=== PATIENT | female | born 1960 | race Asian ===

== ENCOUNTER → 2024-02-19 07:36 | Outpatient (CLI) | payer OTHER, MEDICAID, SELFPAY ==
--- NOTE | 2024-02-19 07:43 | DI.ECHO.S_ITS ---
[facility] : : [address] : : [place] : : [id number] : : Phone: [phone] Echocardiogram Report + + :Name: LITO CALVERT Study Date: 02/19/2024 Height: 61 in : :[facility] ReadingLocation: Weight: 141 lb : : Gender: Female BSA: 1.6 m2 : :: 1960 Age: 64 yrs BP: 142/71 mmHg: :Reason For Study: BRADYCARDIA : :Ordering Physician: CHRISTINE, : :LISHA Butts Performed By: Sheron Blake : :Referring: LISHA VELASQUEZ : + + Interpretation Summary The patient was in a bradycardic rhythm during the exam. The ejection fraction is estimated to be 70-75%. Diastolic function could not be accurately assessed due to contradictory data. The right ventricle is normal in size and function. There is mild tricuspid regurgitation. The right ventricular systolic pressure is estimated to be at least 32 mmHg based on an estimated right atrial pressure of 3 mm Hg. Procedure: A two-dimensional transthoracic echocardiogram with color flow and Doppler was performed. The study quality was technically adequate. There is no prior echocardiogram noted for this patient. The patient was in a bradycardic rhythm during the exam. Left Ventricle: The left ventricle is normal in size and wall thickness. The ejection fraction is estimated to be 70-75%. Diastolic function could not be accurately assessed due to contradictory data. Right Ventricle: The right ventricle is normal in size and function. Atria: The left atrial size is normal. Right atrial size is normal. There is no Doppler evidence for an interatrial shunt. Mitral Valve: The mitral valve is normal in structure and function. There is trace mitral regurgitation. Aortic Valve: The aortic valve is trileaflet. The aortic valve opens well. There is no aortic valve stenosis. No aortic regurgitation is present. Tricuspid Valve: The tricuspid valve is normal in structure and function. There is mild tricuspid regurgitation. The right ventricular systolic pressure is estimated to be at least 32 mmHg based on an estimated right atrial pressure of 3 mm Hg. Pulmonic Valve: The pulmonic valve leaflets are thin and pliable; valve motion is normal. There is no pulmonic valvular regurgitation. Great Vessels: The aortic root is normal size. The dimensions of the ascending aorta are normal. The IVC is of normal diameter and collapses greater than 50% with a sniff. This suggests a low right atrial pressure of 3 mm Hg. Pericardium/ Pleura There is no pericardial effusion. There is no pleural effusion. MMode/2D Measurements & Calculations LVIDd: 3.7 cm LVOT diam: 2.0 cm LVIDs: 2.5 cm Ao root diam: 2.9 cm FS: 32.3 % asc Aorta Diam: 3.2 cm IVSd: 0.98 cm Ao Arch Diam (Prox Trans): 2.5 cm LVPWd: 1.0 cm LV griffin. diameter/BSA (cm/m^2): 2.3 LV sys. diameter/BSA (cm/m^2): 1.5 LA A2 area: 20.2 cm2 RA long axis: 5.3 cm LA A4 area: 15.5 cm2 RA area: 15.9 cm2 LA length (vol): 5.1 cm RA vol: 40.3 ml LA vol: 52.4 ml RA : 24.7 ml/m2 LA vol index: 32.2 ml/m2 IVC diam: 1.0 cm RVD1 (basal): 3.2 cm RVD2 (mid): 2.6 cm TAPSE: 2.3 cm Doppler Measurements & Calculations Ao V2 max: 228.6 cm/sec LVOT Max Rui: 129.3 cm/sec Ao V2 mean: 159.0 cm/sec LV V1 max P.7 mmHg Ao max P.9 mmHg LV V1 VTI: 35.6 cm Ao mean P.3 mmHg ANA(I,D): 1.9 cm2 Ao V2 VTI: 56.9 cm ANA(V,D): 1.7 cm2 sev ratio: 0.63 ANA indexed to BSA (cm^2/m^2): 1.2 MV E max rui: 102.1 cm/sec TR max rui: 267.6 cm/sec MV A max rui: 84.1 cm/sec TR max P.6 mmHg MV E/A: 1.2 PA V2 max: 104.6 cm/sec Med Peak E' Rui: 7.7 cm/sec PA V2 mean: 74.3 cm/sec E/E' med: 13.2 PA mean P.5 mmHg Lat Peak E' Rui: 6.6 cm/sec PA pr(Accel): 7.1 mmHg E/E' lat: 15.6 E/e' average: 14.4 MV dec time: 0.32 sec SVLVOT): 110.2 ml Reading Physician:02:26 PM
--- NOTE | 2024-02-20 04:47 | DI.NM.S_ITS ---
DATE OF SERVICE: 02/19/2024 PROCEDURE: Exercise treadmill stress test without imaging. ORDERING PROVIDER: Lisha Velasquez M.D. INDICATIONS: The patient is a 64-year-old female with a long history of bradycardia and documented moderate coronary artery disease in the LAD by a catheterization in 2022. FINDINGS: 1. The patient was able to exercise for 6 minutes 59 seconds on a standard Tu protocol suggesting good exercise capacity with an RIOS of -9%, achieving 10.1 METS. 2. She had a normal hemodynamic response with a resting heart rate of 45 BPM increasing to a maximum of 161 (104% of her predicted maximum). She had a normal blood pressure response. 3. She had no chest discomfort or anginal symptoms. 4. Her resting ECG shows sinus bradycardia at [address] segments and low limb lead to QRS voltage. With stress, there are no significant ST-segment shifts although mild J-point depression, producing slight upsloping ST depression at peak exercise, yet resolving within 2 minutes of recovery, and thus is nonspecific for any ischemia. She develops occasional PVCs at peak exercise, often in couplets, but no other complex ventricular ectopy. She had significant heart rate variability in the recovery period with changing P-wave morphologies, suggesting probable competing ectopic atrial foci, but no sustained arrhythmias. IMPRESSION: 1. Probable normal exercise treadmill stress test for ischemia with only subtle, nonspecific ST-segment changes with stress. 2. Good exercise capacity without angina. 3. Sinus bradycardia at rest with an appropriate increase in heart rate with stress although with occasional PVCs, often in couplets, at peak exercise, but no other complex ventricular ectopy. In recovery, she was noted to have significant heart rate variability with changing P- wave morphologies, suggesting competing ectopic atrial rhythms but no concerning arrhythmias. LITO CALVERT - KIAN/saranya/AY doc#: [id number]/job#: [id number] dd: 02/19/2024 17:54:00 dt: 02/20/2024 01:29:00 DICTATING MD/COPIES TO: Blaise Borden MD; Lisha Velasquez M.D. COPIES MNE: HOSSEIN;
== END ==
PROVIDERS: Referring Provider Internal Medicine Cardiovascular Disease; Visit Provider Internal Medicine Cardiovascular Disease
DX: I25.10 Atherosclerotic heart disease of native coronary artery without angina pectoris (principal); I07.1 Rheumatic tricuspid insufficiency; R00.1 Bradycardia, unspecified
CPT/HCPCS: 93017; 93306

== ENCOUNTER 2024-12-25 08:01 | Emergency (ER) | payer MEDICARE, MEDICAID, SELFPAY ==
[2024-12-25 08:05] VITALS: BP 141/70; PULSE 36; RESP 16; TEMP 36.4; O2SAT 98; BMI 26.4
[2024-12-25 08:11] VITALS: PULSE 34; RESP 18; O2SAT 100
--- NOTE | 2024-12-25 08:20 | ED.GENADULT ---
HPI - General Adult General Chief complaint: Chest Pain Stated complaint: CP Time Seen by Provider: 12/25/24 08:04 History of Present Illness HPI narrative: 64-year-old woman with history of progressive sinus bradycardia and has been talking with her campus rep about pacemaker currently waiting for her to decide when she wants to proceed with that. Additional medical problems include hypertension and hyperlipidemia. She awoke this morning at 3:30 a.m. with central chest pain/pressure as well as diaphoresis, she took a nitro and her usual amlodipine. This did not seem to change her symptoms much. 5:30 there was a 2nd nitro, 3rd nitro at 6:40 this morning which did finally help with overall chest pain. She currently was pain-free on arrival of medics. They describe her heart rate in the 30-60 range, sinus Supa, diaphoresis has resolved.. She notes that she has not been sleeping well for the last couple of nights she had attributed that to reflux however it does also sound like she is having fairly exertional orthopnea. She does not describe lower extremity edema and does not complain of exertional dyspnea. She was able to walk down the stairs into the ambulance with out recurrent pain or dyspnea. This is now her 5th emergency room visit with presumably rate-related chest pain. There were 3 in [place] last year she was seen in September of this year and again this morning. No recent fevers, headache, abdominal pain, nausea, vomiting, diarrhea. Related Data Home Medications ?Medication ?Instructions ?Recorded ?Confirmed amlodipine 5 mg tablet 5 mg PO DAILY 12/25/24 12/25/24 atorvastatin 40 mg tablet 40 mg PO ONCE PM 12/25/24 12/25/24 famotidine-Ca carb-mag hydrox 10 1 tab PO BEDTIME 12/25/24 12/25/24 mg-800 mg-165 mg chewable tablet (Pepcid Complete) losartan 50 mg tablet 50 mg PO DAILY blood pressure 12/25/24 12/25/24 magnesium glycinate 100 mg (as 200 mg PO BEDTIME 12/25/24 12/25/24 glycinate) tablet multivit with minerals-folic acid 1 tab PO DAILY 12/25/24 12/25/24 200 mcg-biotin 300 mcg chew tablet (Women's Multivitamin with Biotin) Allergies Allergy/AdvReac Type Severity Reaction Status Date / Time No Known Drug Allergies Allergy Verified 12/25/24 08:26 Review of Systems Review of Systems Narrative: Pertinent positive and negative findings as per HPI Patient History Medical History (Updated 12/25/24 @ 09:23 by Yloy yDson MD) Stress-induced cardiomyopathy Hyperlipidemia Coronary artery disease Hypertension Sinus bradycardia Social History Smoking Status: Never smoker Exam Initial Vital Signs Initial Vital Signs: Vital Signs Temperature 97.6 F 12/25/24 08:05 Pulse Rate 36 L 12/25/24 08:05 Respiratory Rate 16 12/25/24 08:05 Blood Pressure 141/70 H 12/25/24 08:05 Pulse Oximetry 98 12/25/24 08:05 Oxygen Delivery Method Room Air 12/25/24 08:05 General: Healthy appearing, in no acute distress. Able to give a complete and coherent history. Well-nourished well-developed HEENT: Moist mucous membranes, normal sclera with reactive pupils, Neck: No JVD, supple Respiratory: Lungs with minimal basilar crackles, no wheezing Cardiac: Sinus rhythm at a rate of 30, no murmurs Abdomen: Soft, nontender, no rebound or guarding, no flank pain Skin: Warm and dry, no rashes Neurologic: Grossly neurologically intact with no obvious asymmetries or abnormalities Extremities: No trauma, no lower extremity edema Psych: Cooperative, appropriate insight and affect Course Orders Ordered: ED Orders 12/25/24 08:15 Complete Blood Count AUTO DIFF Stat Comprehensive Metabolic Panel Stat Lipase Stat Magnesium Stat NT-proBNP (BNP-Adult 18+) Stat PTT Partial Thromboplastin Lalo Stat Prothrombin Time INR Stat Troponin & CK Cardiac Panel Stat 12/25/24 08:24 XR chest 1V Stat EKG-12 Lead Stat Discontinued Medications Aspirin (Aspirin 81 Mg Chew Tab) 324 mg PO NOW ONE Stop: 12/25/24 08:25 Last Admin: 12/25/24 08:43 Dose: Not Given Documented By: LEE Vital Signs Vital signs: Vital Signs - 8 hr 12/25/24 08:05 12/25/24 08:11 12/25/24 08:30 Temperature 97.6 F Pulse Rate 36 L 34 L 40 L Respiratory Rate 16 18 Blood Pressure 141/70 H Pulse Oximetry 98 100 100 Oxygen Delivery Method Room Air 12/25/24 08:31 12/25/24 08:31 Temperature Pulse Rate 32 L Respiratory Rate 21 Blood Pressure 135/66 Pulse Oximetry 100 Oxygen Delivery Method Room Air Medical Decision Making Lab Data 12/25/24 08:15 12/25/24 08:15 Labs: Lab Results 12/25/24 Range/Units 08:15 WBC 10.4 (4.5-11.0) X10^3/uL RBC 4.90 (4.0-5.2) X10^6/uL Hgb 15.0 (12.0-16.0) g/dL Hct 43.7 (36-46) % MCV 89.1 (80-100) fL MCH 30.5 (26-34) PG MCHC 34.2 (30-36) % RDW 13.6 (11.6-14.8) % Plt Count 213 (150-400) X10^3/uL Neut % (Auto) 71.0 (50-75) % Lymph % (Auto) 23.6 L (25-40) % [place] % (Auto) 4.1 (3-14) % Eos % (Auto) 0.6 L (2-4) % Baso % (Auto) 0.7 (0-2) % Neut # (Auto) 7400 H (3781-5158) /uL Lymph # (Auto) 2400 (8764-9655) /uL [place] # (Auto) 400 (0-900) /uL Eos # (Auto) 100 (0-450) /uL Baso # (Auto) 100 (0-100) /uL PT 11.4 (9.4-12.5) SECONDS INR 1.0 (0.9-1.3) APTT 27 (25.1-36.5) SECONDS Sodium 139 (137-145) mmol/L Potassium 4.1 (3.4-5.1) mmol/L Chloride 105 (98-107) mmol/L Carbon Dioxide 25 (22-32) mmol/L BUN 12 (7-17) mg/dL Creatinine 0.85 (0.52-1.04) mg/dL Estimated GFR > 60 (>60) mL/min BUN/Creatinine Ratio 14.1 (6-22) Glucose 121 H (70-99) mg/dL Calcium 8.7 (8.4-10.2) mg/dL Magnesium 2.1 (1.6-2.3) mg/dL Total Bilirubin 1.1 (0.2-1.3) mg/dL AST 30 (14-36) IU/L ALT 32 (<35) IU/L Alkaline Phosphatase 95 (38-126) U/L Total Creatine Kinase 71 (30-135) U/L Troponin I < 0.012 (0.01-0.034) ng/mL NT-Pro-B Natriuret Pep 430 H (<125) pg/mL Total Protein 7.6 (6.3-8.2) g/dL Albumin 4.4 (3.5-5.0) g/dL Globulin 3.2 (1.7-4.1) g/dL Albumin/Globulin Ratio 1.4 (1.0-2.8) Lipase 33 (23-300) U/L MDM Narrative Medical decision making narrative: CC: Chest pain at 3:30 a.m. this morning resolved after 3 nitroglycerin, significant bradycardia Complicating co-morbidities: In his discussion with Cardiology for when to place a pacemaker, decision currently is being lift up to her. Hypertension Data collected from: patient, medic Medical records reviewed: Medical records from [facility] are reviewed. Seen by Cardiology nurse practitioner in August regarding her bradycardia Heart catheterization in January of 2023 with 60-70% mid LAD lesion., most recent exercise stress test was 02/19/[address]. [address] segment changes, occasional PVCs variable heart rate appreciated Most recent echo 02/19/2024 with notable bradycardia ejection fraction 70-75% Cardiology visit 04/[address] Lindsey Humphreys, evaporator was reviewed. Her recommendation was pacemaker placement however not urgent and told patient she could think about it and return when she was having enough symptoms that placing a pacemaker with something she wanted to pursue Differential considered: Congestive heart failure worsening secondary to bradycardia, acute coronary syndrome, infection Exam documented above, pertinent findings include: Dyspnea, tachypnea, mild bibasilar crackles, no other secondary signs of congestive heart failure, significant bradycardia Lab Test results independently reviewed as above. Pertinent findings: CBC is unremarkable, no anemia no infection Chemistries are reassuring. Normal renal function Independently reviewed EKG: Sinus Supa at a rate of 44 no acute ischemia Imaging studies independently reviewed: Chest x-ray shows no significant cardiomegaly, volume overload or infiltrates Discussion: 64-year-old woman with a history of hypertension, hyperlipidemia and worsening symptomatic sinus bradycardia. She has now had 5 ER visits with chest pain that does not appear to be cardiac to, she has had a fairly extensive cardiac workup about a year ago that did not suggest significant ischemic changes. Presumably the pain she is having is from the bradycardia she is having while she is sleeping. While awake and up and moving she says she feels fine. She is reluctant to consider pacemaker. We again discussed the fact that it is optional, she had ER visit in September she has now had 1 in November as these visits increase, the potential for benefit of the pacemaker seems to be increasing. With shared decision-making today she is discharged home. She has all of the phone numbers for campus rep at [facility] including the evaporator. she had a recent appointment scheduled and canceled it because she was not feeling well. I did recommend she call and reschedule. She is safe for discharge at this time Discharge Plan Departure Patient Disposition: Home Clinical Impression: Symptomatic sinus bradycardia, Atypical chest pain Instructions: DI for Bradycardia Activity Restrictions/Additional Instructions: Thank you for coming in today Again, your heart rate was quite low at rest in the low 30s. I suspect that is dropping even lower in your sleep which is why you are having the chest pain. The chest pain that you had today does not appear to be a heart attack or heart attack like syndrome and it is safe for you to go home with no change to current medications. It does seem like you are having more symptoms because of your bradycardia. I know that you would talked to the evaporator, the donor services specialist, about having a pacemaker put in. I think you need to think about this a bit more. I believe that you would feel better, would not have this chest pain that is waking him up at night and would have more energy during the day with a pacemaker placed. If you do want to proceed with that, please call and schedule an appointment with the campus rep. You have indicated that you have other contact and phone numbers. If you find that you are getting worse or develop any new symptoms, please feel free to return to the emergency department for further evaluation. Prescriptions: No Action losartan 50 mg tablet 50 mg PO DAILY atorvastatin 40 mg tablet 40 mg PO ONCE PM amlodipine 5 mg tablet 5 mg PO DAILY Women's Multivitamin w-Biotin 200-300 mcg tablet,chewable 1 tab PO DAILY Patient Comments: Gummy - [facility] Women's Multivitamin w/ Biotin Pepcid Complete 10-800-165 mg tablet,chewable 1 tab PO BEDTIME magnesium glycinate 100 mg tablet 200 mg PO BEDTIME Stand Alone Forms: Patient Portal/API
--- NOTE | 2024-12-25 08:24 | DI.RAD.S_ITS ---
PROCEDURE: XR CHEST 1V INDICATIONS: Chest Pain TECHNIQUE: One view of the chest was acquired. COMPARISON: None. FINDINGS: Surgical changes and devices: None. Lungs and pleura: Lungs are clear. No pleural effusions or pneumothorax. Mediastinum: Mediastinal contours appear normal. Heart size is normal. Bones and chest wall: No suspicious bony lesions. Overlying soft tissues appear unremarkable. IMPRESSION: No acute cardiopulmonary abnormality is seen. Approved by: Mejia Jay M.D. on 12/25/2024 at 8:41
--- NOTE | 2024-12-25 08:24 | EKG_ITS ---
[address] [address] Test Date: 2024-12-25 Pat Name: LITO CALVERT Department: Room: Gender: Female Cracker Off: DAYA : 1960 Requested By: Order Number: [id number] Reading MD: John Flores MD Measurements Intervals [place] Rate: 44 P: 12 WI: 124 QRS: -42 QRSD: 74 T: 64 QT: 520 QTc: 444 Interpretive Statements Marked sinus bradycardia Left axis deviation Inferior infarct , age undetermined Electronically Signed On 12-25-2024 9:17:01 PDT by John Flores MD
[2024-12-25 08:30] VITALS: PULSE 40; O2SAT 100
[2024-12-25 08:31] VITALS: BP 135/66; PULSE 32; RESP 21; O2SAT 100
[2024-12-25 08:33] LABS: Add Manual Diff / Slide Review NO; Basophils Absolute Auto 100 /uL (0-100); Basophils Percent Auto 0.7 % (0-2); Eosinophils Absolute Auto 100 /uL (0-450); Eosinophils Percent Auto 0.6 % (2-4); Hematocrit 43.7 % (36-46); Lymphocytes Absolute Auto 2400 /uL (1100-4500); Lymphocytes Percent Auto 23.6 % (25-40); Mean Corpuscular HGB Conc 34.2 % (30-36); Mean Corpuscular Hemoglobin 30.5 PG (26-34); Mean Corpuscular Volume 89.1 fL (80-100); Monocytes Absolute Auto 400 /uL (0-900); Monocytes Percent Auto 4.1 % (3-14); Neutrophils Absolute Auto 7400 /uL (1500-7000); Platelet Count 213 X10^3/uL (150-400); Prothrombin Time 11.4 SECONDS (9.4-12.5); Red Cell Distribution Width 13.6 % (11.6-14.8); White Blood Cell Count 10.4 X10^3/uL (4.5-11.0)
[2024-12-25 08:36] LABS: PTT Partial Thromboplastin Tim 27 SECONDS (25.1-36.5)
[2024-12-25 08:45] LABS: Alanine Aminotransferase 32 IU/L (<35); Albumin 4.4 g/dL (3.5-5.0); Albumin Globulin Ratio 1.4 (1.0-2.8); Alkaline Phosphatase 95 U/L (38-126); Aspartate Aminotransferase 30 IU/L (14-36); BUN Creatinine Ratio 14.1 (6-22); Bilirubin Total 1.1 mg/dL (0.2-1.3); Blood Urea Nitrogen 12 mg/dL (7-17); Calcium 8.7 mg/dL (8.4-10.2); Carbon Dioxide 25 mmol/L (22-32); Chloride 105 mmol/L (98-107); Creatine Kinase 71 U/L (30-135); Estimated Glomerular Filt Rate > 60 mL/min (>60); Globulin 3.2 g/dL (1.7-4.1); Glucose 121 mg/dL (70-99); HEMOLYSIS < 15 (0-50); Lipase 33 U/L (23-300); Magnesium 2.1 mg/dL (1.6-2.3); Potassium 4.1 mmol/L (3.4-5.1); Sodium 139 mmol/L (137-145); Total Protein 7.6 g/dL (6.3-8.2)
[2024-12-25 08:56] LABS: NT-proBNP (BNP-Adult 18+) 430 pg/mL (<125); Troponin I < 0.012 ng/mL (0.01-0.034)
[2024-12-25 09:01] VITALS: BP 126/61; PULSE 42; RESP 16; O2SAT 99
== END 2024-12-25 09:35 | disposition home or self-care (01) ==
PROVIDERS: Emergency Provider Emergency Medicine
DX: R00.1 Bradycardia, unspecified (principal); R07.89 Other chest pain; Z95.0 Presence of cardiac pacemaker
CPT/HCPCS: 71045; 80053; 82550; 83690; 83735; 83880; 84484; 85025; 85610; 85730; 93005; 93010; 99283; 99284